=== PATIENT | male | born 1965 | race African-American/Black ===

== ENCOUNTER 2016-11-17 10:01 | Emergency (ER) | payer OTHER ==
[2016-11-17 10:10] VITALS: BP 138/85; PULSE 83; TEMP 98.4; BMI 26.4
[2016-11-17] MEDS ORDERED: KETOROLAC TROMETHAMINE 60 MG/2 ML VIAL IM ONE (11:18)
[2016-11-17] MEDS ORDERED: KETOROLAC TROMETHAMINE 60 MG/2 ML VIAL ONE (11:22)
[2016-11-17 12:15] LABS: URINE APPEARANCE CLEAR; URINE BILIRUBIN NEGATIVE (NEGATIVE); URINE BLOOD NEGATIVE (NEGATIVE); URINE COLOR YELLOW; URINE GLUCOSE (UA) NEGATIVE (NEGATIVE); URINE KETONE NEGATIVE (NEGATIVE); URINE LEUK ESTERASE NEGATIVE (NEGATIVE); URINE NITRITE NEGATIVE (NEGATIVE); URINE PROTEIN NEGATIVE (NEGATIVE); URINE UROBILINOGEN NEGATIVE E.U./dl (0.2-1.0)
--- NOTE | 2016-11-17 12:17 | PDOC ---
History of Present Illness - General Chief Complaint: Back Pain Stated Complaint: BACK PAIN Time Seen by Provider: 11/17/16 10:57 History Source: Patient Exam Limitations: No Limitations - History of Present Illness Initial Comments: 11/17/16 12:18 50 yr male with c/o low back pain left side radiating to his buttock and thigh. Pt has had the pain before, not as severe as today. Pt denies urine or bowel dysfunction. Pt does suffer from constipation on and off. Pt denies abd pain neg diarrhea. 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) HTN: Yes Hypercholesterolemia: Yes - Psycho/Social/Smoking Cessation Hx Anxiety: No Suicidal Ideation: No Smoking History: Never smoked Have you smoked in the past 12 months: No Hx Alcohol Use: Yes (OCCAS) Drug/Substance Use Hx: No Substance Use Type: None *Physical Exam - Vital Signs Last Vital Signs Temp Pulse Resp BP Pulse Ox 98.4 F 83 19 138/85 98 11/17/16 10:07 11/17/16 10:07 11/17/16 10:07 11/17/16 10:07 11/17/16 10:07 - Physical Exam General Appearance: Yes: Nourished, Appropriately Dressed HEENT: positive: EOMI, FARHEEN, Normal ENT Inspection, TMs Normal, Pharynx Normal Neck: positive: Supple. negative: Tender Respiratory/Chest: positive: Lungs Clear, Normal Breath Sounds Cardiovascular: positive: Regular Rhythm, Regular Rate Gastrointestinal/Abdominal: positive: Normal Bowel Sounds, Soft Musculoskeletal: positive: Normal Inspection, Decreased Range of Motion (due to pain ), Other (pain to left lower back paraspinal muscles to buttock ). negative: CVA Tenderness, CVA Tenderness (R), CVA Tenderness (L), Vertebral Tenderness Extremity: positive: Normal Capillary Refill, Normal Inspection, Normal Range of Motion Integumentary: positive: Normal Color, Dry, Warm Neurologic: positive: Fully Oriented, Alert, Normal Mood/Affect, Normal Response , Motor Strength 12/02 ED Treatment Course - RADIOLOGY Radiology Studies Ordered: Category Date Time Status LUMBAR SPINE CT W/O CONTRAST [CT] Stat CT Scan 11/17/16 11:49 Ordered SPINE-LUMBAR ONLY [RAD] Stat Radiology 11/17/16 11:18 Completed - Medications Given in the ED: ED Medications Discontinued Medications Generic Name Dose Route Start Last Admin Trade Name Freq PRN Reason Stop Dose Admin Ketorolac Tromethamine 60 mg 11/17/16 11:18 11/17/16 11:41 Toradol Injection - IM 11/17/16 11:19 60 mg ONCE ONE Administration Medical Decision Making - Medical Decision Making 11/17/16 12:38 cc: low back pain radiates to buttock and lateral thigh neg weakness , neg saddle anesthsia no incontinence will give toradol and lumbar spine neg urine will have pt follow with orthopedist Dr. López for further care pt states he feels better after the toradol and is ambulating freely no distress. 11/17/16 15:57 *DC/Admit/Observation/Transfer Diagnosis at time of Disposition: Lumbar spine pain - Discharge Dispostion Disposition: HOME Condition at time of disposition: Good - Prescriptions Prescriptions: Cyclobenzaprine HCl [Flexeril 10 mg] 5 mg PO TID PRN #21 tablet PRN Reason: Muscle Spasms Naproxen [Naprosyn -] 500 mg PO BID PRN #28 tablet PRN Reason: Back Pain - Referrals Referrals: Dionicio López MD [Staff Physician] - - Patient Instructions Additional Instructions: follow with the orthopedist for follow up call today to make appointment take the flexeril for muscle spasm as directed DO NOT DRIVE, OPERATE MACHINERY OR DRINK ALCOHOL take Naprosyn for pain as directed return to ER for any worsening symptoms
== END 2016-11-17 12:50 | disposition home or self-care (01) ==
LOC: JERFT 10:01
PROC: 3E0233Z Introduction of Anti-inflammatory into Muscle, Percutaneous Approach (ICD-10-PCS; principal; 2016-11-17)
DX: M54.5 Low back pain (principal)
CPT/HCPCS: 72100-TC; 81003; 99281-25

== ENCOUNTER 2017-11-14 18:06 | Emergency (ER) | payer OTHER ==
[2017-11-14 18:27] VITALS: BP 131/93; PULSE 77; TEMP 98.6; BMI 27.8
--- NOTE | 2017-11-14 18:28 | PDOC ---
Rapid Medical Evaluation Time Seen by Provider: 11/14/17 18:24 Medical Evaluation: Allergies Allergy/AdvReac Type Severity Reaction Status Date / Time No Known Drug Allergies Allergy Verified 11/14/17 18:24 11/14/17 18:24 Pt c/o: rectal pain since yesterday, no bleeding, no constipation, recent increase in exertion, no abd pain Pt on brief exam: vss Pt ordered for: none Pt to proceed to the ED Discharge Disposition - Diagnosis Rectal pain - Referrals - Patient Instructions - Post Discharge Activity
[2017-11-14] MEDS ORDERED: SULFAMETHOXAZOLE/TRIMETHOPRIM 800MG/160MG D.S. TABLET PO ONE (19:48)
--- NOTE | 2017-11-14 19:52 | PDOC ---
History of Present Illness - General History Source: Patient Exam Limitations: No Limitations - History of Present Illness Initial Comments: 11/14/17 20:05 The patient is a 51 year old male with a significant PMH of HTN and hyperlipidemia who presents to the emergency department with rectal pain beginning approximately yesterday. He also notes passing stool has been more difficult over the past day as he has had to exert himself more than usual. The patient denies any rectal bleeding. He denies dysuria or hematuria. He denies fevers or chills. He denies nausea, vomiting, or diarrhea. He denies any sick contacts. The patient denies chest pain, shortness of breath, headache and dizziness. Denies dysuria, frequency, urgency and hematuria. Allergies: NKDA Past surgical history: None reported. Social history: No reported cigarette, alcohol, or drug use. PCP: Dr. 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) HTN: Yes Hypercholesterolemia: Yes - Suicide/Smoking/Psychosocial Hx Smoking History: Never smoked Have you smoked in the past 12 months: No Hx Alcohol Use: Yes (OCCAS) Drug/Substance Use Hx: No Substance Use Type: None <Jeremías Bro - Last Filed: 11/15/17 19:39> - Past Medical History Allergies/Adverse Reactions: Allergies Allergy/AdvReac Type Severity Reaction Status Date / Time No Known Drug Allergies Allergy Verified 11/14/17 18:24 Home Medications: Ambulatory Orders Amlodipine Besylate 10 mg PO DAILY 05/03/16 Atorvastatin Ca [Lipitor] 40 mg PO HS 05/04/16 Sulfamethoxazole/Trimethoprim [Bactrim Ds -] 1 tab PO BID #3 tablet 05/04/16 Cyclobenzaprine HCl [Flexeril 10 mg] 5 mg PO TID PRN #21 tablet 11/17/16 Docusate Sodium [Colace] 100 mg PO TID #30 capsule 11/14/17 Naproxen [Naprosyn -] 500 mg PO BID PRN #28 tablet 11/14/17 Sulfamethoxazole/Trimethoprim [Bactrim *Ds*] 1 tab PO BID #20 tablet 11/14/17 Review of Systems - Review of Systems Able to Perform ROS?: Yes Comments:: 11/14/17 20:05 CONSTITUTIONAL: Absent: fever, chills, diaphoresis, generalized weakness, malaise, loss of appetite HEENT: Absent: rhinorrhea, nasal congestion, throat pain, throat swelling, difficulty swallowing, mouth swelling, ear pain, eye pain, visual Changes CARDIOVASCULAR: Absent: chest pain, syncope, palpitations, irregular heart rate, lightheadedness , peripheral edema RESPIRATORY: Absent: cough, shortness of breath, dyspnea with exertion, orthopnea, wheezing, stridor, hemoptysis GASTROINTESTINAL: (+) Rectal pain. No bleeding. Absent: abdominal pain, abdominal distension, nausea, vomiting, diarrhea, constipation, melena, hematochezia GENITOURINARY: Absent: dysuria, frequency, urgency, hesitancy, hematuria, flank pain, genital pain MUSCULOSKELETAL: Absent: myalgia, arthralgia, joint swelling SKIN: Absent: rash, itching, pallor HEMATOLOGIC/IMMUNOLOGIC: Absent: easy bleeding, easy bruising, lymphadenopathy, frequent infections ENDOCRINE: Absent: unexplained weight gain, unexplained weight loss, heat intolerance, cold intolerance NEUROLOGIC: Absent: headache, focal weakness or paresthesias, dizziness, unsteady gait, seizure, mental status changes, bladder or bowel incontinence PSYCHIATRIC: Absent: anxiety, depression, suicidal or homicidal ideation, hallucinations. <Kwesi Cavazos - Last Filed: 11/14/17 20:06> *Physical Exam - Vital Signs Last Vital Signs Temp Pulse Resp BP Pulse Ox 98.6 F 77 19 131/93 100 11/14/17 18:24 11/14/17 18:24 11/14/17 18:24 11/14/17 18:24 11/14/17 18:24 - Physical Exam Comments: 11/14/17 20:05 GENERAL: Well developed, well nourished. Awake and alert. No acute distress. HEENT: Normocephalic, atraumatic. PERRLA, EOMI. No conjunctival pallor. Sclera are non- icteric. Moist mucous membranes. Oropharynx is clear. NECK: Supple. Full ROM. No JVD. Carotid pulses 2+ and symmetric, without bruits. No thyromegaly. No lymphadenopathy. CARDIOVASCULAR: Regular rate and rhythm. No murmurs, rubs, or gallops. Distal pulses are 2+ and symmetric. PULMONARY: No evidence of respiratory distress. Lungs clear to auscultation bilaterally. No wheezing, rales or rhonchi. ABDOMINAL: Soft. Non-tender. Non-distended. No rebound or guarding. No organomegaly. Normoactive bowel sounds. RECTAL: (+) Tenderness at 12 o clock in the anorectal area. Nonfluctuant. Nonerythematous. No discharge. MUSCULOSKELETAL Normal range of motion at all joints. No bony deformities or tenderness. No CVA tenderness. EXTREMITIES: No cyanosis. No clubbing. No edema. No calf tenderness. SKIN: Warm and dry. Normal capillary refill. No rashes. No jaundice. NEUROLOGICAL: Alert, awake, appropriate. Cranial nerves 2-12 intact. No deficits to light touch and temperature in face, upper extremities and lower extremities. No motor deficits in the in face, upper extremities and lower extremities. Normoreflexic in the upper and lower extremities. Normal speech. Toes are downgoing bilaterally. Gait is normal without ataxia. PSYCHIATRIC: Cooperative. Good eye contact. Appropriate mood and affect. <Kwesi Cavazos - Last Filed: 11/14/17 20:06> - Vital Signs Last Vital Signs Temp Pulse Resp BP Pulse Ox 98.6 F 77 19 131/93 100 11/14/17 18:24 11/14/17 18:24 11/14/17 18:24 11/14/17 18:24 11/14/17 18:24 <Jeremías Bro - Last Filed: 11/15/17 19:39> ED Treatment Course - Medications Given in the ED: ED Medications Discontinued Medications Generic Name Dose Route Start Last Admin Trade Name Freq PRN Reason Stop Dose Admin Trimethoprim/Sulfamethoxazole 1 each 11/14/17 19:48 11/14/17 19:51 Bactrim Ds - PO 11/14/17 19:49 1 each ONCE ONE Administration <Kwesi Cavazos - Last Filed: 11/14/17 20:06> Medical Decision Making - Medical Decision Making 11/14/17 20:10 Dr. Bro: The scribe's documentation has been prepared under my direction and personally reviewed by me in its entirery. I confirm that the note above accurately reflects all work, treatment, procedures, and medical decision making performed by me. 11/15/17 19:39 [email or web address] <Jeremías Bro - Last Filed: 11/15/17 19:39> *DC/Admit/Observation/Transfer - Attestations Scribe Attestion: 11/14/17 20:05 Documentation prepared by Kwesi Cavazos, acting as medical office specialist for Jeremías Bro DO. <Kwesi Cavazos - Last Filed: 11/14/17 20:06> - Discharge Dispostion Admit: No <Jeremías Bro - Last Filed: 11/15/17 19:39> Diagnosis at time of Disposition: Rectal pain, Anal abscess - Discharge Dispostion Disposition: HOME Condition at time of disposition: Stable - Prescriptions Prescriptions: Docusate Sodium [Colace] 100 mg PO TID #30 capsule Naproxen [Naprosyn -] 500 mg PO BID PRN #28 tablet PRN Reason: Back Pain Sulfamethoxazole/Trimethoprim [Bactrim *Ds*] 1 tab PO BID #20 tablet - Referrals Referrals: Jeffery Kimble [Primary Care Provider] - Dante Dodd MD [Staff Physician] - - Patient Instructions Printed Discharge Instructions: DI for Anal Abscess Additional Instructions: please take medication as directed. sit in warm bath water, soften area. follow -up with your primary care doctor, for possible surgical referral - Post Discharge Activity
[2017-11-14] MEDS ORDERED: SULFAMETHOXAZOLE/TRIMETHOPRIM 800MG/160MG D.S. TABLET ONE (20:00)
== END 2017-11-14 20:20 | disposition home or self-care (01) ==
LOC: JER 18:06
DX: K61.0 Anal abscess (principal); I10 Essential (primary) hypertension; E78.00 Pure hypercholesterolemia, unspecified; E78.5 Hyperlipidemia, unspecified
CPT/HCPCS: 99281-25

== ENCOUNTER 2019-06-10 21:24 | Emergency (ER) | payer OTHER ==
[2019-06-10 21:33] VITALS: BP 158/109; PULSE 91; TEMP 97.5; BMI 27.8
--- NOTE | 2019-06-10 21:34 | PDOC ---
Rapid Medical Evaluation Time Seen by Provider: 06/10/19 21:30 Medical Evaluation: Allergies Allergy/AdvReac Type Severity Reaction Status Date / Time No Known Drug Allergies Allergy Verified 06/10/19 21:30 06/10/19 21:30 Pt presents for evaluation of low back pain radiating down his R leg. Pt states the pain has been going on for two days. Denies heavy lifting, but does a lot of stairs for work. Denies saddle anesthesia, bladder/bowel incontinence Exam: no gross neuro deficits. (+) straight leg raise on the R leg Orders: deferred to provider Pt to proceed to the ER for further evaluation Discharge Disposition - Diagnosis Lumbar spine pain - Referrals - Patient Instructions - Post Discharge Activity
[2019-06-10] MEDS ORDERED: KETOROLAC TROMETHAMINE 60 MG/2 ML VIAL IM ONE (22:10)
[2019-06-10] MEDS ORDERED: KETOROLAC TROMETHAMINE 60 MG/2 ML VIAL ONE (22:11)
--- NOTE | 2019-06-10 22:13 | PDOC ---
History of Present Illness - General Chief Complaint: Back Pain Stated Complaint: BACK PAIN Time Seen by Provider: 06/10/19 21:30 - History of Present Illness Initial Comments: 06/10/19 22:11 53-year-old male with a past medical history of hypertension presents for 2 days of lower back pain with posterior lateral right leg radicular symptoms without loss of bowel or bladder function or systemic symptoms. Past History - Past Medical History Allergies/Adverse Reactions: Allergies Allergy/AdvReac Type Severity Reaction Status Date / Time No Known Drug Allergies Allergy Verified 06/10/19 21:30 Home Medications: Ambulatory Orders Amlodipine Besylate 10 mg PO DAILY 05/03/16 Atorvastatin Ca [Lipitor] 40 mg PO HS 05/04/16 Sulfamethoxazole/Trimethoprim [Bactrim Ds -] 1 tab PO BID #3 tablet 05/04/16 Cyclobenzaprine HCl [Flexeril 10 mg] 5 mg PO TID PRN #21 tablet 11/17/16 Docusate Sodium [Colace] 100 mg PO TID #30 capsule 11/14/17 Naproxen [Naprosyn -] 500 mg PO BID PRN #28 tablet 11/14/17 Sulfamethoxazole/Trimethoprim [Bactrim *Ds*] 1 tab PO BID #20 tablet 11/14/17 Cyclobenzaprine HCl [Flexeril 10 mg] 10 mg PO HS PRN #10 tablet 06/10/19 Methylprednisolone [Medrol Dose Kei] 4 mg PO ASDIR #21 tablet 06/10/19 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) COPD: No HTN: Yes Hypercholesterolemia: Yes - Immunization History Immunization Up to Date: Yes - Psycho Social/Smoking Cessation Hx Smoking History: Never smoked Have you smoked in the past 12 months: No Hx Alcohol Use: No Drug/Substance Use Hx: No Substance Use Type: None Review of Systems - Review of Systems Constitutional: No: Fever : No: Incontinence Musculoskeletal: Yes: Back Pain *Physical Exam - Vital Signs Last Vital Signs Temp Pulse Resp BP Pulse Ox 97.5 F L 91 H 18 158/109 H 98 06/10/19 21:30 06/10/19 21:30 06/10/19 21:30 06/10/19 21:30 06/10/19 21:30 - Physical Exam Comments: 06/10/19 22:11 Lumbar spine skin color temperature normal range of motion is slightly limited. There is no midline tenderness. Mild right-sided paralumbar musculature spasm and tenderness. 5 out of 5 strength bilateral lower extremities without gross sensorimotor deficits positive straight leg raise test on the right negative on the left neurovascular intact thighs and calves are soft and nontender Medical Decision Making - Medical Decision Making 06/10/19 22:12 Toradol in the emergency room, Medrol Dosepak and Flexeril at home follow-up with neurosurgery Discharge - Discharge Information Problems reviewed: Yes Clinical Impression/Diagnosis: Lumbar spine pain, Lumbar radiculopathy Condition: Stable Disposition: HOME - Admission No - Additional Discharge Information Prescriptions: Cyclobenzaprine HCl [Flexeril 10 mg] 10 mg PO HS PRN #10 tablet PRN Reason: Muscle Spasms Methylprednisolone [Medrol Dose Kei] 4 mg PO ASDIR #21 tablet - Follow up/Referral Referrals: Jeffery Kimble [Primary Care Provider] - [place] Noriega MD, FAANS [Staff Physician] - - Patient Discharge Instructions Additional Instructions: Please take the Medrol Dosepak as directed. Return to the emergency room for worsening symptoms. The muscle relaxers 1 tablet before bedtime will make you sleepy. Follow-up with neurosurgery in 1 to 2 days for further evaluation and treatment options. - Post Discharge Activity Work/Back to School Note: Back to Work
[2019-06-10] MEDS ORDERED: FLU VACCINE QUAD 60 MCG/0.5 ML (MDV 19-20) IM ONE (22:16)
== END 2019-06-10 22:36 | disposition home or self-care (01) ==
LOC: JERFT 21:24
PROC: 3E0233Z Introduction of Anti-inflammatory into Muscle, Percutaneous Approach (ICD-10-PCS; principal; 2019-06-10)
DX: M54.16 Radiculopathy, lumbar region (principal); E78.00 Pure hypercholesterolemia, unspecified; I25.119 Atherosclerotic heart disease of native coronary artery with unspecified angina pectoris; I10 Essential (primary) hypertension
CPT/HCPCS: 99282-25

== ENCOUNTER 2021-02-27 10:03 | Emergency (ER) | payer OTHER ==
[2021-02-27 10:18] VITALS: BP 159/95; PULSE 78; TEMP 98.6; BMI 29.7
== END 2021-02-27 11:49 | disposition home or self-care (01) ==
LOC: JERFT 10:03 → JER 10:03 → JERFT 11:49
DX: M25.561 Pain in right knee (principal)
CPT/HCPCS: 73562-TC-RT-FY; 99283-25

== ENCOUNTER 2022-01-02 18:58 | Emergency (ER) | payer OTHER ==
[2022-01-02 19:21] VITALS: PULSE 86; TEMP 98.3; BMI 27.8
[2022-01-02] MEDS ORDERED: KETOROLAC TROMETHAMINE 30 MG/1 ML VIAL ONE (20:12)
[2022-01-02] MEDS ORDERED: KETOROLAC TROMETHAMINE 30 MG/1 ML VIAL IM ONE (20:13)
[2022-01-02 21:22] VITALS: BP 155/97
== END 2022-01-02 22:04 | disposition home or self-care (01) ==
LOC: JER 18:58 → JERFT 18:58 → JER 22:04
PROC: 3E0233Z Introduction of Anti-inflammatory into Muscle, Percutaneous Approach (ICD-10-PCS; principal; 2022-01-02)
DX: R09.81 Nasal congestion (principal); M79.10 Myalgia, unspecified site
CPT/HCPCS: 0241U-QW; 99284-25

== ENCOUNTER 2022-05-24 22:19 | Observation (INO) | payer OTHER ==
[2022-05-24 22:36] VITALS: TEMP 98.6; BMI 28.7
[2022-05-24] MEDS ORDERED: ACETAMINOPHEN 1000 MG/100 ML BAG IVPB ONE (22:48)
[2022-05-24] MEDS ORDERED: SODIUM CHLORIDE 0.9% 500 ML INFUS.BAG IV ONE (22:48)
[2022-05-24] MEDS ORDERED: ONDANSETRON 4 MG/2 ML VIAL IVPUSH ONE (22:48)
[2022-05-24] MEDS ORDERED: MECLIZINE HCL 25 MG TABLET (FP) PO ONE (22:53)
[2022-05-24] MEDS ORDERED: MECLIZINE HCL 25 MG TABLET (FP) ONE (23:07)
[2022-05-24] MEDS ORDERED: ACETAMINOPHEN INJECTION 100 ML IVPB ONE (23:07)
[2022-05-24] MEDS ORDERED: ONDANSETRON 4 MG/2 ML VIAL ONE (23:07)
[2022-05-24 23:39] LABS: BASO % 0.8 % (0-2.0); HEMATOCRIT 47.1 % (35.4-49); HEMOGLOBIN 15.9 GM/dL (11.7-16.9); LYMPH % 26.7 % (8-40); MCH 27.1 pg (25.7-33.7); MCHC 33.8 g/dl (32.0-35.9); MEAN CELL VOLUME 80.4 fl (80-96); MEAN PLT VOLUME 8.9 fl (7.5-11.1); MONO % 3.7 % (3.8-10.2); NEUT % 67.8 % (42.8-82.8); PLATELET COUNT 205 10^3/uL (134-434); RBC 5.86 M/mm3 (4.00-5.60)
[2022-05-24 23:55] LABS: CALCIUM 9.2 mg/dL (8.5-10.1)
[2022-05-24 23:56] LABS: ALBUMIN 3.8 g/dl (3.4-5.0); BLOOD UREA NITROGEN 13.7 mg/dL (7-18); MAGNESIUM 2.1 mg/dL (1.8-2.4)
[2022-05-25] LABS: BILIRUBIN,TOTAL 0.6 mg/dL (0.2-1); TOT PROT 7.5 g/dl (6.4-8.2)
[2022-05-25] MEDS ORDERED: ONDANSETRON 4 MG/2 ML VIAL IVPUSH ONE (00:41)
[2022-05-25] MEDS ORDERED: ONDANSETRON 4 MG/2 ML VIAL ONE (00:43)
[2022-05-25] MEDS ORDERED: POTASSIUM CHLORIDE TABS 10 MEQ TABLET.ER (FP) PO ONE (04:08)
[2022-05-25] MEDS ORDERED: POTASSIUM CHLORIDE TABS 20 MEQ TABLET.ER (FP) PO ONE (06:06)
[2022-05-25 07:33] LABS: BASO % 0.1 % (0-2.0); EOS % 0.1 % (0-4.5); HEMATOCRIT 47.1 % (35.4-49); HEMOGLOBIN 16.2 GM/dL (11.7-16.9); LYMPH % 24.6 % (8-40); MCH 28.1 pg (25.7-33.7); MCHC 34.3 g/dl (32.0-35.9); MEAN PLT VOLUME 8.7 fl (7.5-11.1); MONO % 4.4 % (3.8-10.2); NEUT % 70.8 % (42.8-82.8); PLATELET COUNT 186 10^3/uL (134-434); RBC 5.75 M/mm3 (4.00-5.60); RDW 15.1 % (11.9-15.9)
[2022-05-25 08:03] VITALS: BP 144/90; PULSE 68; RESP 20
[2022-05-25 08:16] LABS: CHOLESTEROL 227 mg/dL (50-200); TRIGLYCERIDES 69 mg/dL (0-150)
[2022-05-25 08:17] LABS: LDL CHOLESTEROL (ONLY SJRH) 167 mg/dL (5-100)
[2022-05-25 08:18] LABS: CALCIUM 8.8 mg/dL (8.5-10.1)
[2022-05-25 08:19] LABS: ALBUMIN 3.7 g/dl (3.4-5.0); BLOOD UREA NITROGEN 10.4 mg/dL (7-18); HDL CHOLESTEROL 47 mg/dL (40-60); MAGNESIUM 2.2 mg/dL (1.8-2.4)
[2022-05-25 08:22] LABS: PHOSPHOROUS 4.4 mg/dL (2.5-4.9)
[2022-05-25 08:23] LABS: BILIRUBIN,TOTAL 0.7 mg/dL (0.2-1); TOT PROT 7.1 g/dl (6.4-8.2)
[2022-05-25] MEDS ORDERED: HYDROCHLOROTHIAZIDE 12.5 MG CAPSULE (FP) PO SCH (10:00)
[2022-05-25] MEDS ORDERED: ENOXAPARIN NA (PORCINE) 40 MG/0.4 ML DISP.SYRIN SQ SCH (10:00)
[2022-05-25] MEDS ORDERED: amLODIPine BESYLATE 5 MG TABLET (FP) PO SCH (10:00)
[2022-05-25] MEDS ORDERED: LISINOPRIL 20 MG TABLET PO SCH (22:00)
== END 2022-05-25 08:10 | disposition left against medical advice (07) ==
LOC: JER 22:19 → INTOOBSV 05-25 02:03 → JERBED 05-25 02:03
PROVIDERS: ADMIT Internal Medicine; ATTEND Internal Medicine
PROC: 3E033NZ Introduction of Analgesics, Hypnotics, Sedatives into Peripheral Vein, Percutaneous Approach (ICD-10-PCS; principal; 2022-05-25)
PROC: 3E033GC Introduction of Other Therapeutic Substance into Peripheral Vein, Percutaneous Approach (ICD-10-PCS; 2022-05-25)
PROC: 3E0337Z Introduction of Electrolytic and Water Balance Substance into Peripheral Vein, Percutaneous Approach (ICD-10-PCS; 2022-05-25)
DX: R42 Dizziness and giddiness (principal); E78.00 Pure hypercholesterolemia, unspecified; I10 Essential (primary) hypertension; I16.0 Hypertensive urgency; Z29.8 Encounter for other specified prophylactic measures
CPT/HCPCS: 0241U-QW; 36415; 70450-TC; 70496-TC; 70498-TC; 71045-TC-FY; 80053; 80061; 83036; 83690; 83735; 84100; 84443; 84484; 85025; 93005; 93010; 96374; 96375; 96376; 99285-25; G0378; Q9967

== ENCOUNTER 2023-04-01 20:26 | Emergency (ER) | payer OTHER ==
[2023-04-01 20:42] VITALS: BP 161/94; PULSE 82; RESP 19; TEMP 99.7; BMI 28.0
[2023-04-01] MEDS ORDERED: ACETAMINOPHEN 500 MG TABLET (FP) PO ONE (21:54)
[2023-04-01] MEDS ORDERED: KETOROLAC TROMETHAMINE 30 MG/1 ML VIAL IM ONE (21:54)
[2023-04-01] MEDS ORDERED: ACETAMINOPHEN 500 MG TABLET (FP) ONE (22:11)
[2023-04-01] MEDS ORDERED: KETOROLAC TROMETHAMINE 30 MG/1 ML VIAL ONE (22:11)
== END 2023-04-01 22:18 | disposition home or self-care (01) ==
LOC: JERFT 20:26
PROC: 3E0233Z Introduction of Anti-inflammatory into Muscle, Percutaneous Approach (ICD-10-PCS; principal; 2023-04-01)
DX: M79.10 Myalgia, unspecified site (principal); R51.9 Headache, unspecified; R50.9 Fever, unspecified; U07.1 COVID-19
CPT/HCPCS: 0241U-QW; 99284-25